=== PATIENT | female | born 1950 | race Caucasian/White ===

== ENCOUNTER → 2023-10-04 10:57 | Outpatient (REF) | payer MEDICARE, SELFPAY | LOC: WDC 10:57 | PROVIDERS: ATTENDING PHYSICIAN Family Medicine Geriatric Medicine; FAMILY PHYSICIAN Family Medicine | DX: Z12.31 Encounter for screening mammogram for malignant neoplasm of breast (principal); Z85.3 Personal history of malignant neoplasm of breast; C50.112 Malignant neoplasm of central portion of left female breast; Z17.0 Estrogen receptor positive status [ER+] | CPT/HCPCS: 77063; 77067 ==

== ENCOUNTER → 2024-04-10 08:39 | Outpatient (REF) | payer MEDICARE, SELFPAY ==
--- NOTE | 2024-03-06 13:15 | PN.DIAED02 ---
Referral
DSME Class Series Code: [id number]
Referred For: Diabetes Self-Management Training, Medical Nutrition Therapy, Self-Blood Glucose Monitoring, Long-Term Complication Instruction, Accute Complication Instruction, Continuous Glucose Monitoring, Medication management, Care Coordination,
Disease Management
PHI Release Authorization Form Signed: Yes
Patient Problems:
Current Active Problems
Problem Status Onset
Type 2 diabetes mellitus with hyperglycemia
Demographic
(1) Type 2 diabetes mellitus with hyperglycemia
Status: Acute Code(s): E11.65 - Type 2 diabetes mellitus with hyperglycemia
Patient's primary language-: Armenian
Education: College degree
Occupation: Retired
- Social
Primary Support Person: Self
Primary Care Takers: Self (Assistance given by Son)
Living Arrangements: Self
- Learning Methods
Preferred Method: Reading
Barriers to Learning: None
Glycemic Control
- Blood Glucose Monitoring Assessment
Date: 02/11/24 (219 mg/dL)
Blood glucose monitoring at home: Yes
Monitor Brands: Accu-Chek (AccuCheck Guide)
Frequency: 4x per day
Time: before lunch, before dinner, bedtime
Patient uses Alternate Site Testing: No
- Ketone Monitoring Assessment
Patient monitoring ketone: No
- Hyperglycemia Assessment
Experiences Hyperglycemia: No
- Hypoglycemia Assessment
Patient carries glucose source: No (Reviewed importance of carrying glucose at all times since starting insulin)
Patient experiences hypoglycemia: No (Reviewed Rule of 15)
Patient has required treatment by others: No
- Blood Glucose Monitoring Results
Source: log book (hand written log: lowest 80 mg/dL fasting up to 222 mg/dL at bedtime)
- Hemoglobin A1c
Date: 02/11/24
A1C Percentage (%): 10.9
Medical History of Diabetes
Family Diabetes History: Mother
Previous Diabetes Education: Yes
How long ago?: 1-5 years ago
Previous visit with Dietitian: No
Complications/Comorbidity/Specialist: Hyperlipidemia (Rosuvastatin 20 mg and ASA 81 mg daily), Other / symptoms (history of cancer: Tamoxifin 20 mg daily)
Current Home Medication
- Insulin Management
Patient adjusts own insulin dosages: No (Tresiba 10 units at bedtime)
Patient has access to glucagon: No (Reccomended she discuss with Nora ANTHONY at MD office)
- Insulin Types
Tresiba
Insulin Injection Site: Rotates
Administration Type: Other (Tresiba Flextouch)
Measures
- Anthropometrics
Height: 5 ft 6 in
Actual Weight: 186 lb 9.6 oz
- Blood Pressure / Pulse
Blood pressure: 123/75
Pulse: 81
- Diabetes Management
Medical Management for Diabetes: Complete physical exam (02/16/2024), Dental exam (10/19/2023), Dilated eye exam (05/17/2023), Pneumonia vaccination (02/16/2024), Other (Covid Vaccine: 04/24/2020, 06/03/2020, 01/22/2021, 12/12/2023)
Self-Care
- Tobacco Usage
Do you now, or have you ever smoked?: Never smoked
- Alcohol & Drugs Usage
Drinks Alcohol: Yes
Amount/day: Other (2 drinks 2 times per week)
- Meals & Dining
Meals & Dining: Patient skips meals: No, Food Intolerance / Allergy: No, Cultural / Jehovah'[employer] Witness Dietary Needs: No
Primary Food Warehouse Record Clerk: Self
Dining Out Frequency: 1-3x per week
- Physical Activity
Physical Limitation: No
Patient participates in physical Activity: Yes ([employer] 45 minutes 3 times per week)
Activity Types: Aerobics, Strength training
Duration: 41-50 minutes
Frequency: 3-5x per week
Intensity: Moderate
- Self Foot-Care
Foot Problems: None
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 Reccomended to make an appt )
- Patient-Self Assessment
Diabetes Knowledge: Good
Feelings About Diabetes: Acceptance
General Health: Good
Importance of Health: Extremely
Stress Level: Low
Diabetes Interferes With:: Nothing
Barriers to Diabetes Management: Nothing
Depression Survey Score: 4
- Diabetes Identification
Carries Diabetes Identification: Yes (wears ID bracelet)
Care Plan
- Education Needs
Patient Education Needs: Diabetes disease process, Chronic complications, Acute complications, Medication, Monitoring, Physical activity, Psychosocial Adjustment, Nutritional management, Goal setting & problem solving
Recommended Diabetes Training Program based on assessment: Outpatient Diabetes Education Program
- Plan of Care
Plan of Care:
Ling presented for her initial diabetes assessment prior to the March, daytime DSME course. She currently lives alone however, has support from her son who lives local. Ling has had diabetes for over 20 years and received DSME greater
than 3 years ago. Since her a few years ago she has been struggling with higher A1c levels. Her current A1c is 10.9 % and she was started on Tresbia 10 units 3 weeks ago. In addition to Tresiba she takes the following for her diabetes
management: Metformin 1000 mg twice daily, Jardiance 25 mg daily, Starlix 120 mg three times per day and Trulicity. Ling reports her numbers have been improved since starting the Tresiba and her fasting numbers have been in the 80 mg/dL range. We
reviewed the insulin injection technique and reinforced rotating sites. Hypoglycemia recognition and treatment was discussed and she was encouraged to carry a source of glucose with her at all times. Currently Ling goes to the gym ([employer]) three
times a week for 45 minutes. We discussed importance of activity and adding in an additional day of walking was listed as one of her goals. Ling currently has the Accu-Check guide meter at home and is waiting for Medicare approval of the Dexcom
G7. I recommended she follow up with the nurse at her [place] office or reach out for assistance in starting the sensor. I also discussed apps that will be necessary to download in order for her son to follow her Dexcom numbers. Ling is especially
interested in learning more about a diabetes meal plan at the class.
--- NOTE | 2024-03-06 13:51 | PN.DIAED04 ---
Education Record
- Education Record
Class Attended: Other
DSME Class Series Code: [id number]
Instructor: Nurse Practitioner (EWA Vigil)
Pre-Test Score (%): 80
Goals
- Goal 1
Being Active: Exercise more often, Other (Start walking 20 minutes with indoor walking CD's on days she does not go to [employer])
Goals To Be Evaluated: Exercise more often. Other
- Goal 2
Healthy Eating: Patient will be able to plan a meal
Goals To Be Evaluated: Be able to plan a meal
- Goal 3
Monitoring: Monitor more often (Would like to start [employer] G7 continuous monitor)
Goals To Be Evaluated: Monitor more often
--- NOTE | 2024-04-11 13:26 | PN.DIAED14 ---
This is to notify you that your patient with diabetes, TYSON CLAY ( 1950), has enrolled in our diabetes self-management classes that are being held at [facility].
These classes will include an introduction to diabetes, diet, medication, exercise and prevention of complications. At the end of our class series, you will receive a report of your patient's participation and progress for your records.
Please contact me at the Diabetes Center, , if there is any particular information regarding your patient that might be helpful to me.
Sincerely,
Roland MCNEIL-,[facility]
--- NOTE | 2024-04-11 13:27 | PN.DIAED04 ---
Addendum entered and electronically signed by Zakiya Page 04/12/24 11:48:
Outpatient Diabetes Education Program:
Class 1 (120 minutes)
Describe the diabetes disease process and treatment options
Diabetes management
Develop personal strategies to promote health and behavior change
Integrate psychosocial adjustment for daily living
Monitor blood glucose and other parameters. Interpret and use the results for self-management decision making
Prevent, detect, and treat acute complications
Original Note:
Education Record
- Education Record
Class Attended: Class 1
DSME Class Series Code: [id number]
Instructor: Nurse Practitioner
Class Length (mins): 120
Post-Class 1 Test Score (%): 100
== END ==
LOC: DES 08:39
PROVIDERS: ATTENDING PHYSICIAN Family Medicine
DX: E11.65 Type 2 diabetes mellitus with hyperglycemia (principal)
CPT/HCPCS: 99078

== ENCOUNTER → 2024-04-17 12:54 | Outpatient (REF) | payer MEDICARE, SELFPAY | LOC: DES 12:54 | PROVIDERS: ATTENDING PHYSICIAN Family Medicine | DX: E11.65 Type 2 diabetes mellitus with hyperglycemia (principal) | CPT/HCPCS: 99078 ==

== ENCOUNTER → 2024-04-24 09:03 | Outpatient (REF) | payer MEDICARE, SELFPAY | LOC: DES 09:03 | PROVIDERS: ATTENDING PHYSICIAN Family Medicine | DX: E11.65 Type 2 diabetes mellitus with hyperglycemia (principal) | CPT/HCPCS: 99078 ==

== ENCOUNTER → 2024-05-01 09:58 | Outpatient (REF) | payer MEDICARE, SELFPAY ==
--- NOTE | 2024-05-02 10:27 | PN.DIAED04 ---
Education Record
- Education Record
Class Attended: Class 4
DSME Class Series Code: [id number]
Instructor: Nurse Practitioner (EWA Vigil)
Class Curriculum:
Outpatient Diabetes Education Program:
Class 4 (120 minutes)
Develop personal strategies to promote health and behavior change
Incorporate physical activity into lifestyle
Utilize medications safety for maximum therapeutic effectiveness
Understand different medication/insulin mechanism of action
Preparing for travel
Class Length (mins): 120
Post-Class 4 Test Score (%): 100
== END ==
LOC: DES 09:58
PROVIDERS: ATTENDING PHYSICIAN Family Medicine
DX: E11.65 Type 2 diabetes mellitus with hyperglycemia (principal)
CPT/HCPCS: 99078

== ENCOUNTER → 2024-05-08 10:52 | Outpatient (REF) | payer MEDICARE, SELFPAY ==
--- NOTE | 2024-05-10 11:55 | PN.DIAED16 ---
This is to notify you that your patient with diabetes, TYSON CLAY ( 1950), has attended the entire series of Diabetes Self-Management Education Classes.
Class 1 (120 minutes): Diabetes Overview - monitoring, stress/psychosocial adjustment, support, goal setting
Class 2 (120 minutes): Meal Planning - serving sizes, menu plans
Class 3 (120 minutes): Introduction to Carbohydrate Counting, Analyzing Food Labels
Class 4 (120 minutes): Medication, Exercise and Activity
Class 5 (120 minutes): Sick Day Management, Strategies to Reduce Complications, Problem Solving, Resources
The following behavioral goals were identified:
Exercise more often
Other
Be able to plan a meal
Monitor more often
A follow-up call will be made within three to six months to evaluate attainment of these goals and to check post-program Hemoglobin A1c and overall progress. All class participants are encouraged to contact me if I can be any further assistance in
learning how to manage their diabetes.
Sincerely,
This is to notify you that your patient with diabetes, TYSON CLAY ( 1950), has attended the entire series of Diabetes Self-Management Education Classes.
Class 1 (120 minutes): Diabetes Overview - monitoring, stress/psychosocial adjustment, support, goal setting
Class 2 (120 minutes): Meal Planning - serving sizes, menu plans
Class 3 (120 minutes): Introduction to Carbohydrate Counting, Analyzing Food Labels
Class 4 (120 minutes): Medication, Exercise and Activity
Class 5 (120 minutes): Sick Day Management, Strategies to Reduce Complications, Problem Solving, Resources
The following behavioral goals were identified:
Exercise more often
Be able to plan a meal
Monitor more often
A follow-up call will be made within three to six months to evaluate attainment of these goals and to check post-program Hemoglobin A1c and overall progress. All class participants are encouraged to contact me if I can be any further assistance in
learning how to manage their diabetes.
Sincerely,
Roland MCNEIL-, [facility]
== END ==
LOC: DES 10:52
PROVIDERS: ATTENDING PHYSICIAN Family Medicine
DX: E11.65 Type 2 diabetes mellitus with hyperglycemia (principal)
CPT/HCPCS: 99078

== ENCOUNTER → 2024-10-04 12:20 | Outpatient (REF) | payer MEDICARE, SELFPAY | LOC: WDC 12:20 | PROVIDERS: ATTENDING PHYSICIAN Internal Medicine Hematology & Oncology; FAMILY PHYSICIAN Family Medicine | DX: Z12.31 Encounter for screening mammogram for malignant neoplasm of breast (principal) | CPT/HCPCS: 77063; 77067 ==

== ENCOUNTER → 2025-02-20 10:32 | Outpatient (REF) | payer MEDICARE, SELFPAY | LOC: REG 10:32 | PROVIDERS: ATTENDING PHYSICIAN Family Medicine | DX: M25.522 Pain in left elbow (principal); M79.632 Pain in left forearm | CPT/HCPCS: 73080; 73090 ==